=== PATIENT | female | born 2000 | race Caucasian/White ===

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

== ENCOUNTER → 2021-01-24 | Outpatient (CLI) | payer BC | LOC: LAB 15:00 | DX: N30.01 Acute cystitis with hematuria (principal) ==

== ENCOUNTER → 2021-05-16 | Outpatient (CLI) | payer BC | LOC: LAB 12:22 | DX: Z20.822 Contact with and (suspected) exposure to COVID-19 (principal) ==